=== PATIENT | male | born 1940 | race Caucasian/White ===

== ENCOUNTER 2016-08-24 06:26 | Emergency (ER) | payer OTHER ==
[~2016-08-24] VITALS: Ht 185.4 cm; Wt 95.4 kg
[~2016-08-24 06:26] MED LIST: DYAZ PO; PRIL20TA2 PO
[2016-08-24 06:28] VITALS: BP 133/83; PULSE 66; RESP 16; TEMP 97.6; O2SAT 100
[2016-08-24 06:36] VITALS: BP 150/95; PULSE 58; RESP 14; TEMP 99.1; O2SAT 95
[2016-08-24] MEDS ORDERED: SODIUM CHLOR 0.9% 1000 ML INJ 1,000 ML IV SCH (06:56)
[2016-08-24] MEDS ORDERED: ONDANSETRON HCL 4 MG/2 ML VIAL IVP ONE (07:00)
[2016-08-24] MEDS ORDERED: MORPHINE SULFATE 4 MG/ML INJ IV PUSH ONE ×2 (07:00→08:45)
[2016-08-24] MEDS ORDERED: PANTOPRAZOLE SODIUM 40 MG VIAL IVP ONE (07:00)
--- NOTE | 2016-08-24 07:01 | PD ---
HPI Chief Complaint: abdominal pain Time Seen by Provider: 06:56 Travel History International Travel<30 days: No Contact w/Intl Traveler<30days: No Traveled to known affect area: No History of Present Illness HPI 75-year-old male complains of abdominal pain. Patient states the pain started yesterday. Patient states the pain is cramping pain diffuse over the abdomen but more severe on the left side abdomen and left flank area. Patient denies any pain radiation. Patient denies fever chills. Patient denies any dysuria or frequency. Patient denies any nausea vomiting diarrhea. On a scale of 1-10 the pain is a 5. PFSH Past Medical History GERD: Yes Hiatal Hernia: Yes Hypertension: Yes Past Surgical History Other Surgery: Yes (uvula for sleep apnea) Social History Alcohol Use: Yes (1 beer per month) Tobacco Use: No Allergies-Medications (Allergen,Severity, Reaction): Coded Allergies: No Known Allergies (Unverified , 08/24/16) Reported Meds & Prescriptions Reported Meds & Active Scripts Active Reported Eye-Vites (Multiple Vitamins W/ Minerals) 1 Tab Tab Omeprazole 20 Mg Tab 20 Mg PO BID Hydrochlorothiazide 25 Mg Tab 25 Mg PO DAILY Azelastine Nasal [place] (Azelastine HCl) 0.15% [place] 2 [place] EACH NARE DAILY To each nostril. Review of Systems General / Constitutional: No: Fever Eyes: No: Visual changes HENT: No: Headaches Cardiovascular: No: Chest Pain or Discomfort Respiratory: No: Shortness of Breath Gastrointestinal: Positive: Abdominal Pain Genitourinary: No: Dysuria Musculoskeletal: No: Pain Skin: No Rash Neurologic: No: Weakness Psychiatric: No: Depression Endocrine: No: Polydipsia Hematologic/Lymphatic: No: Easy Bruising Physical Exam Narrative GENERAL: Well-nourished, well-developed patient. SKIN: Warm and dry. HEAD: Normocephalic. EYES: No scleral icterus. No injection or drainage. NECK: Supple, trachea midline. No JVD or lymphadenopathy. CARDIOVASCULAR: Regular rate and rhythm without murmurs, gallops, or rubs. RESPIRATORY: Breath sounds equal bilaterally. No accessory muscle use. GASTROINTESTINAL: Abdomen soft, nondistended. Patient has mild to moderate tenderness and palpation left abdomen. No rebound tenderness. No mass. MUSCULOSKELETAL: No cyanosis, or edema. BACK: Mild tenderness on palpation left side lumbar area, without obvious deformity. No CVA tenderness. Neurologic exam normal. Data Data Last Documented VS Vital Signs Date Time Temp Pulse Resp B/P Pulse Ox O2 Delivery O2 Flow Rate FiO2 08/24/16 08:39 57 18 184/87 96 Room Air 08/24/16 06:36 99.1 Orders Complete Blood Count With Diff (08/24/16 06:56) Comprehensive Metabolic Panel (08/24/16 06:56) Lipase (08/24/16 06:56) Prothrombin Time / Inr (Pt) (08/24/16 06:56) Act Partial Throm Time (Ptt) (08/24/16 06:56) Urinalysis - C+S If Indicated (08/24/16 06:56) Ct Abd/Pel W Iv Contrast(Rout) (08/24/16 06:56) Iv Access Insert/Monitor (08/24/16 06:56) Ecg Monitoring (08/24/16 06:56) Oximetry (08/24/16 06:56) Morphine Inj (Morphine Inj) (08/24/16 07:00) Ondansetron Inj (Zofran Inj) (08/24/16 07:00) Pantoprazole Inj (Protonix Inj) (08/24/16 07:00) Sodium Chlor 0.9% 1000 Ml Inj (Ns 1000 M (08/24/16 06:56) Electrocardiogram (08/24/16 06:56) Chest, Single Ap (08/24/16 06:56) Iohexol 300 Inj (Rad Ct) (Omnipaque 300 (08/24/16 08:13) Morphine Inj (Morphine Inj) (08/24/16 08:45) Labs Laboratory Tests Test 08/24/16 07:27 White Blood Count 11.0 TH/MM3 Red Blood Count 4.88 MIL/MM3 Hemoglobin 14.4 GM/DL Hematocrit 42.7 % Mean Corpuscular Volume 87.5 FL Mean Corpuscular Hemoglobin 29.4 PG Mean Corpuscular Hemoglobin 33.6 % Concent Red Cell Distribution Width 13.4 % Platelet Count 262 TH/MM3 Mean Platelet Volume 7.3 FL Neutrophils (%) (Auto) 82.1 % Lymphocytes (%) (Auto) 9.3 % Monocytes (%) (Auto) 7.9 % Eosinophils (%) (Auto) 0.5 % Basophils (%) (Auto) 0.2 % Neutrophils # (Auto) 9.0 TH/MM3 Lymphocytes # (Auto) 1.0 TH/MM3 Monocytes # (Auto) 0.9 TH/MM3 Eosinophils # (Auto) 0.1 TH/MM3 Basophils # (Auto) 0.0 TH/MM3 CBC Comment DIFF FINAL Differential Comment Prothrombin Time 10.6 SEC Prothromb Time International 1.0 RATIO Ratio Activated Partial 27.7 SEC Thromboplast Time Urine Collection Type CLEAN CATCH Urine Color YELLOW Urine Turbidity CLEAR Urine pH 7.0 Urine Specific [place] 1.010 Urine Protein NEG mg/dL Urine Glucose (UA) NEG mg/dL Urine Ketones 15 mg/dL Urine Occult Blood NEG Urine Nitrite NEG Urine Bilirubin NEG Urine Leukocyte Esterase NEG Urine RBC 0-3 /hpf Urine WBC 0-2 /hpf Urine Squamous Epithelial 0-5 /hpf Cells Microscopic Urinalysis Comment CULT NOT INDICATED Urine Collection Time 07:27 Sodium Level 140 MEQ/L Potassium Level 3.8 MEQ/L Chloride Level 104 MEQ/L Carbon Dioxide Level 27.6 MEQ/L Anion Gap 8 MEQ/L Blood Urea Nitrogen 12 MG/DL Creatinine 1.10 MG/DL Estimat Glomerular Filtration 65 ML/MIN Rate Random Glucose 100 MG/DL Calcium Level 8.0 MG/DL Total Bilirubin 0.9 MG/DL Aspartate Amino Transf 20 U/L (AST/SGOT) Alanine Aminotransferase 21 U/L (ALT/SGPT) Alkaline Phosphatase 81 U/L Total Protein 6.8 GM/DL Albumin 3.1 GM/DL Lipase 90 U/L MDM Medical Decision Making Medical Screen Exam Complete: Yes Emergency Medical Condition: Yes Interpretation(s) Last Impressions Chest X-Ray 08/24/1656 Signed Impressions: Service Date/Time: Wednesday, August 24, 2016 07:13 - CONCLUSION: No acute cardiopulmonary disease demonstrated. Oswaldo Gonzalez MD Abdomen/Pelvis CT 08/24/1656 Signed Impressions: Service Date/Time: Wednesday, August 24, 2016 08:06 - CONCLUSION: 1. There are inflammatory changes surrounding the left kidney with delayed left nephrogram suggesting some degree of obstruction. There are clearly left renal sinus cysts but there may be hydronephrosis present as well. I do not see an obstructing mass or stone as the cause. Infection or a nonvisualized obstructing process are the favored etiologies. 2. Nonacute findings include small hiatal hernia, mild atherosclerotic disease, and mild sigmoid diverticulosis. Oswaldo Guaman MD 8:45 AM. CBC within normal limit. CMP within normal limit. UA is negative. Differential Diagnosis Differential diagnosis including colitis, UTI, pyelonephritis, nephrolithiasis, musculoskeletal. Narrative Course 75-year-old male with abdominal pain, mostly in the left side and left flank area. Normal saline solution 1 25 cc an hour. Protonix 40 mg IV. Morphine 2 mg IV. Zofran 4 mg IV. Diagnosis Primary Impression: Nephrolithiasis Patient Instructions: General Instructions Additional Instructions: Take medication as needed for pain. Follow-up with urologist. Return if intractable pain, persistent nausea vomiting, fever. Med/Other Pt SpecificInfo: Prescription(s) given Scripts Tamsulosin (Flomax)0.4 Mg Cap0.4 Mg PO HS #14 CAP Ref 0 Prov:Vargas Galdamez MD 08/24/16 Hydrocodone-Acetaminophen ([place])5-325 mg Tab1 Tab PO Q6H PRN (PAIN) #30 TAB Prov:Vargas Galdamez MD 08/24/16 Ondansetron Odt (Zofran Odt)4 Mg Tab4 Mg SL Q6HR PRN (Nausea/Vomiting) #20 TAB Prov:Vargas Galdamez MD 08/24/16 Disposition: 01 DISCHARGE HOME Condition: Stable Vargas Galdamez MD Aug 24, 2016 07:01
[2016-08-24] MEDS ORDERED: OMEP20TA PO (07:16)
[2016-08-24] MEDS ORDERED: HYDR25TA5 PO (07:16)
[2016-08-24] MEDS ORDERED: EYE-TAB2 (07:16)
[2016-08-24] MEDS ORDERED: AZEL0.055 EACH NARE (07:16)
[2016-08-24 07:30] LABS: BASOPHIL % 0.2 % (0.0-2.0); BLOOD, URINE NEG (NEG); EOSINOPHIL # 0.1 TH/MM3 (0-0.4); EOSINOPHIL % 0.5 % (0.0-4.0); GLUCOSE,URINE NEG (NEG); HEMATOCRIT 42.7 % (39.0-51.0); HEMO FLAGS DIFF FINAL; KETONE, URINE 15 mg/dL (NEG); LYMPH % 9.3 % (9.0-44.0); MEAN CELL VOLUME 87.5 FL (80.0-100.0); MEAN CORPUSCULAR HEMOGLOBIN 29.4 PG (27.0-34.0); MEAN CORPUSCULAR HGB CONC 33.6 % (32.0-36.0); MONO % 7.9 % (0.0-8.0); NEUT % 82.1 % (16.0-70.0); NITRITE,URINE NEG (NEG); PLATELET COUNT 262 TH/MM3 (150-450); RED BLOOD COUNT 4.88 MIL/MM3 (4.50-5.90); RED CELL DISTRIBUTION WIDTH 13.4 % (11.6-17.2)
--- NOTE | 2016-08-24 07:31 | RADHPO ---
EXAM DATE/TIME: 08/24/2016 07:13 [facility] COMPARISON: No previous studies available for comparison. INDICATIONS : Chest and upper abdominal pain. MEDICAL HISTORY : None. SURGICAL HISTORY : None. ENCOUNTER: Initial ACUITY: 1 day PAIN SCORE: 7/10 LOCATION: chest FINDINGS: A single view of the chest demonstrates the lungs to be symmetrically aerated without evidence of mas s, infiltrate or effusion. The cardiomediastinal contours are unremarkable. Osseous structures are intact. CONCLUSION: No acute cardiopulmonary disease demonstrated. Oswaldo Gonzalez MD on August 24, 2016 at 7:29 Board Certified Radiologist. This report was verified electronically.
[2016-08-24 07:36] LABS: COMMENT (UR) CULT NOT INDICATED; CULTURE IF INDICATED CULT NOT INDICATED; METHOD OF COLLECTION CLEAN CATCH; RBC, URINE 0-3 /hpf (0-3); SQUAMOUS EPITHELIAL CELL URINE 0-5 /hpf (0-5); URINE COLOR YELLOW (YELLW/STRAW); WBC, URINE 0-2 /hpf (0-5)
[2016-08-24 07:37] LABS: CHLORIDE 104 MEQ/L (98-107); POTASSIUM 3.8 MEQ/L (3.5-5.1); SODIUM (NA) 140 MEQ/L (136-145)
[2016-08-24 07:41] LABS: ANION GAP 8 MEQ/L (5-15); BICARBONATE 27.6 MEQ/L (21.0-32.0); BLOOD UREA NITROGEN 12 MG/DL (7-18)
[2016-08-24 07:44] LABS: ALT (GPT) 21 U/L (12-78); AST (GOT) 20 U/L (15-37); GLOMERULAR FILTRATION RATE 65 ML/MIN (>89)
[2016-08-24 07:45] LABS: TOTAL BILIRUBIN ADULT 0.9 MG/DL (0.2-1.0)
[2016-08-24 07:46] LABS: ALKALINE PHOSPHATASE 81 U/L (45-117)
[2016-08-24 07:49] LABS: APTT (PATIENT) 27.7 SEC (24.3-30.1); PROTHROMBIN TIME - PATIENT 10.6 SEC (9.8-11.6)
[2016-08-24] MEDS ORDERED: IOHEXOL 300 MG/ML 100 ML BTL (for Rad CT) IV ONE (08:13)
--- NOTE | 2016-08-24 08:37 | RADHPO ---
EXAM DATE/TIME: 08/24/2016 08:06 [facility] COMPARISON: No previous studies available for comparison. INDICATIONS : Left flank pain. IV CONTRAST: 100 cc Omnipaque 300 (iohexol) IV ORAL CONTRAST: No oral contrast ingested. RADIATION DOSE: 17.06 CTDIvol (mGy) MEDICAL HISTORY : Hypertension. Gastroesophageal reflux disease. SURGICAL HISTORY : Hiatal hernia ENCOUNTER: Initial ACUITY: 1 day PAIN SCALE: 3/10 LOCATION: Left flank TECHNIQUE: Volumetric scanning of the abdomen and pelvis was performed. Using automated exposure control and ad justment of the mA and/or kV according to patient size, radiation dose was kept as low as reasonably achievable to obtain optimal diagnostic quality images. FINDINGS: LOWER LUNGS: The visualized lower lungs are clear. There is a calcified granuloma in the right lower lobe. LIVER: Homogeneous density without lesion. There is no dilation of the biliary tree. No calcified gallston es. SPLEEN: Normal size without lesion. PANCREAS: Within normal limits. KIDNEYS: Right kidney contains 2 low-density lesions measuring up to 9 mm. Both are incompletely characterized on this study. There are left renal sinus cysts and it is difficult to exclude hydronephrosis. There is delayed nephrogram on the left with asymmetric perinephric stranding on the left. No renal stone is visualized. No obstructing mass is seen. Inflammatory changes extend into the inferior aspect of t he perirenal space within the pelvis. ADRENAL GLANDS: Within normal limits. VASCULAR: There is no aortic aneurysm. There is mild atherosclerotic disease. BOWEL/MESENTERY: The stomach, small bowel, and colon demonstrate no acute abnormality. There is mild sigmoid divertic ulosis. There is no free intraperitoneal air or fluid. A small hiatal hernia is present. ABDOMINAL WALL: There is a small fat containing umbilical hernia. RETROPERITONEUM: There is no lymphadenopathy. BLADDER: No wall thickening or mass. REPRODUCTIVE: Within normal limits. INGUINAL: There is no lymphadenopathy or hernia. MUSCULOSKELETAL: There are degenerative changes of the lumbar spine. CONCLUSION: 1. There are inflammatory changes surrounding the left kidney with delayed left nephrogram suggesting some degree of obstruction. There are clearly left renal sinus cysts but there may be hydronephrosis present as well. I do not see an obstructing mass or stone as the cause. Infection or a nonvisualize d obstructing process are the favored etiologies. 2. Nonacute findings include small hiatal hernia, mild atherosclerotic disease, and mild sigmoid dive rticulosis. Oswaldo Guaman MD on August 24, 2016 at 8:24 Board Certified Radiologist. This report was verified electronically.
[2016-08-24 08:39] VITALS: BP 184/87; PULSE 57; RESP 18; O2SAT 95; O2SAT 96
[2016-08-24] MEDS ORDERED: TAMS5CAP PO (09:02)
[2016-08-24] MEDS ORDERED: NORC5TAB PO (09:02)
[2016-08-24] MEDS ORDERED: ZOFR4TAB3 SL (09:02)
[2016-08-24 09:42] VITALS: BP 159/86; PULSE 55; RESP 18; O2SAT 94
--- NOTE | 2016-08-24 13:58 | EKG ---
Date Performed: 08/24/2016 Time Performed: 06:56:14 PTAGE: 75 years EKG: Sinus bradycardia with sinus arrhythmia Right bundle branch block Inferior T wave changes a re nonspecific Abnormal ECG NO PREVIOUS TRACING DOCTOR: Marcos Florentino Interpretating Date/Time 08/24/2016 13:56:00
== END 2016-08-24 09:45 | disposition home or self-care (01) ==
LOC: PHED 06:26
DX: N20.0 Calculus of kidney (principal); I10 Essential (primary) hypertension
CPT/HCPCS: 71010; 74177; 80053; 81001; 83690; 85025; 85610; 85730; 93005; 96361; 96374; 96375; 96376; 99284; C9113; J2270; J2405; J7030; Q9967